=== PATIENT | male | born 1960 | race Two or more races ===

== ENCOUNTER → 2022-04-27 08:00 | Outpatient (CLI) | payer OTHER ==
[~2022-04-27] VITALS: Ht 175.3 cm; Wt 53.1 kg
[~2022-04-27 08:00] MED LIST: CHILDREN'S ASPI81 MG PO; TOPROL XL25 M1 PO
== END | disposition home or self-care (01) ==
LOC: LAB 08:00 → ADM 08:00 → CIR.AMB 04-29 08:00 → EDSTATUS 04-29 08:00
PROVIDERS: ATTEND Surgery
DX: K42.9 Umbilical hernia without obstruction or gangrene (principal); K40.21 Bilateral inguinal hernia, without obstruction or gangrene, recurrent

== ENCOUNTER 2022-12-02 05:00 | Day surgery (SDC) | payer OTHER ==
[~2022-12-02] VITALS: Ht 175.3 cm; Wt 52.2 kg
[2022-12-02] MEDS ORDERED: TYLENOL ARTHRI650 MG PO (09:58)
[2022-12-02] MEDS ORDERED: TRAMADOL HCL50 MG PO (09:58)
[2022-12-02] MEDS ORDERED: KETO10TA2 PO (09:58)
[2022-12-02] MEDS ORDERED: MIRALAX17 GM PO (09:58)
== END 2022-12-02 14:30 | disposition home or self-care (01) ==
LOC: CIR.AMB 05:00
PROVIDERS: ATTEND Surgery
DX: K40.21 Bilateral inguinal hernia, without obstruction or gangrene, recurrent (principal); I10 Essential (primary) hypertension; Z87.891 Personal history of nicotine dependence; Z20.822 Contact with and (suspected) exposure to COVID-19
CPT/HCPCS: 49651; C1781